=== PATIENT | male | born 1965 | race Two or more races ===

== ENCOUNTER 2020-03-31 13:58 | Outpatient (REF) | payer MEDICARE, MEDICAID, SELFPAY ==
[2020-03-31 14:50] LABS: Influenza A PCR NEGATIVE (Negative); Influenza B PCR NEGATIVE (Negative); Resp Syncy Virus RNA Qual PCR NEGATIVE (Negative); SARS COV2 PCR INHOUSE NEGATIVE (Negative)
== END 2020-03-31 13:59 | disposition home or self-care (01) ==
LOC: HO.LNP 13:58
PROVIDERS: Visit Provider Internal Medicine
DX: R51.9 Headache, unspecified (principal); R52 Pain, unspecified; R53.83 Other fatigue
CPT/HCPCS: 0241U

== ENCOUNTER 2020-04-15 14:02 | Outpatient (REF) | payer MEDICARE, MEDICAID, SELFPAY ==
--- NOTE | 2020-04-15 14:10 | XR_ITS ---
EXAMINATION: XR CHEST CLINICAL INFORMATION: Chest wall pain. History of tobacco use. COMPARISON: None TECHNIQUE: 2 views of the chest were obtained. FINDINGS: The cardiac and mediastinal contours are normal. The lungs are clear. There is no pleural effusion or pneumothorax. There is an old right lateral seventh rib fracture. There are mild degenerative changes of the thoracic spine. XR/XR chest 2V IMPRESSION: No evidence for acute disease in the chest.
[2020-04-15 15:00] LABS: MANUAL DIFF FLAG NO
[2020-04-15 15:01] LABS: Basophils Percent Auto 0.4 % (0-2); Eosinophils Percent Auto 0.3 % (0-4); Hematocrit 46.9 % (42-52); Hemoglobin 15.2 g/dl (14.0-18.0); Imm Gran Abs Auto 0.01 X10*3/uL (0.00-0.03); Imm Gran Pct Auto 0.1 % (0.0-0.4); Lymphocytes Absolute Auto 1.1 X10*3/uL (1.2-4.9); Lymphocytes Percent Auto 16.4 % (20-40); Mean Corpuscular HGB Conc 32.4 g/dl (31.0-36.0); Mean Corpuscular Hemoglobin 31.5 pg (27.0-33.0); Mean Corpuscular Volume 97.3 fL (80-98); Mean Platelet Volume 10.1 fL (9.4-12.4); Monocytes Absolute Auto 0.5 X10*3/uL (0.1-1.2); Monocytes Percent Auto 6.9 % (2-11); Neutrophils Absolute Auto 5.3 X10*3/uL (2.0-8.3); Neutrophils Percent Auto 75.9 % (45-73); Platelet Count 191 X10*3/uL (160-400); Red Blood Count 4.82 X10*6/uL (4.60-5.80); Red Cell Distribution Width 12.3 % (11.0-16.0); White Blood Count 6.9 X10*3/uL (4.8-10.8)
[2020-04-15 15:30] LABS: Alanine Aminotransferase 20 U/L (0-40); Albumin Level 4.5 g/dL (3.5-5.0); Alkaline Phosphatase 97 U/L (39-117); Anion Gap 15 (12-20); Aspartate Amino Transferase 22 U/L (5-37); Bilirubin Total 1.2 mg/dL (0.0-1.0); Blood Urea Nitrogen 15 mg/dL (9-16); C Reactive Protein 0.41 mg/dL (< or = 0.50); Calcium 9.7 mg/dL (8.4-10.2); Carbon Dioxide 29 mmol/L (22-29); Chloride 102 mmol/L (96-108); Estimated Glomerular Filt Rate > 60; Glucose Random 98 mg/dL (60-115); Potassium 4.7 mmol/L (3.3-5.1); Sodium 141 mmol/L (135-145); Total Protein 7.2 g/dL (6.5-8.0)
== END 2020-04-15 14:03 | disposition home or self-care (01) ==
LOC: HO.LAB 14:02
PROVIDERS: PCP Internal Medicine; Visit Provider Internal Medicine
DX: R07.89 Other chest pain (principal); F17.210 Nicotine dependence, cigarettes, uncomplicated
CPT/HCPCS: 36415; 71046; 80053; 85025; 86140

== ENCOUNTER 2021-02-18 11:33 | Outpatient (REF) | payer MEDICARE, MEDICAID, SELFPAY ==
[2021-02-18 13:47] LABS: MANUAL DIFF FLAG NO
[2021-02-18 13:50] LABS: Appearance Urine CLEAR; Color Urine YELLOW; Glucose Urine UA NEG (NEG); Leukocyte Esterase Urine NEG (NEG); Nitrite Urine NEG (NEG); Urine Blood NEG (NEG); Urine Ketones NEG (NEG); Urine Protein NEG (NEG-TRACE)
[2021-02-18 13:54] LABS: Basophils Percent Auto 0.4 % (0-2); Eosinophils Percent Auto 0.6 % (0-4); Hematocrit 44.7 % (42.0-52.0); Hemoglobin 14.3 g/dl (14.0-18.0); Imm Gran Abs Auto 0.01 X10*3/uL (0.00-0.03); Imm Gran Pct Auto 0.2 % (0.0-0.4); Lymphocytes Absolute Auto 1.2 X10*3/uL (1.2-4.9); Lymphocytes Percent Auto 21.7 % (20-40); Mean Corpuscular Hemoglobin 30.8 pg (27.0-33.0); Mean Corpuscular Volume 96.1 fL (80.0-98.0); Mean Platelet Volume 10.9 fL (9.4-12.4); Monocytes Absolute Auto 0.4 X10*3/uL (0.1-1.2); Monocytes Percent Auto 6.6 % (2-11); Neutrophils Absolute Auto 3.8 x10*3/uL (2.0-8.3); Neutrophils Percent Auto 70.5 % (45-73); Platelet Count 198 X10*3/uL (160-400); Red Blood Count 4.65 X10*6/uL (4.60-5.80); Red Cell Distribution Width 12.1 % (11.0-16.0); White Blood Count 5.3 X10*3/uL (4.8-10.8)
[2021-02-18 14:38] LABS: Anion Gap 12 (12-20); Blood Urea Nitrogen 11 mg/dL (9-16); Calcium 9.6 mg/dL (8.4-10.2); Carbon Dioxide 25 mmol/L (22-29); Chloride 107 mmol/L (96-108); Estimated Glomerular Filt Rate > 60; Glucose Random 104 mg/dL (60-115); Potassium 4.3 mmol/L (3.3-5.1); Sodium 140 mmol/L (135-145)
[2021-02-18 14:49] LABS: Prostate Specific Antigen Scr 0.94 ng/mL (<0.05-4.0)
[2021-02-18 17:14] LABS: CT PCR NOT DETECTED (Not Detect.); NG PCR NOT DETECTED (Not Detect.)
== END 2021-02-18 11:34 | disposition home or self-care (01) ==
LOC: HO.10HDL 11:33
PROVIDERS: Visit Provider Internal Medicine
DX: Z12.5 Encounter for screening for malignant neoplasm of prostate (principal); Z11.3 Encounter for screening for infections with a predominantly sexual mode of transmission; R30.0 Dysuria; Z72.0 Tobacco use
CPT/HCPCS: 80048; 81003; 84153; 85025; 87086; 87491; 87591

== ENCOUNTER 2021-12-10 17:41 | Emergency (ER) | payer MEDICARE, MEDICAID, SELFPAY ==
[2021-12-10 17:57] VITALS: BP 177/68; PULSE 76; RESP 16; TEMP 36.7; O2SAT 99; BMI 26.6
--- NOTE | 2021-12-10 17:59 | ECG_ITS ---
Test Reason : OVERDOSED Blood Pressure : / mmHG Vent. Rate : 071 BPM Atrial Rate : 071 BPM P-R Int : 154 ms QRS Dur : 084 ms QT Int : 422 ms P-R-T Axes : 026 006 086 degrees QTc Int : 458 ms Normal sinus rhythm Nonspecific T wave abnormality Abnormal ECG No previous ECGs available Referred By: Beckie Kwon Electronically Signed By:AMANDA SANCHEZ
--- NOTE | 2021-12-10 18:07 | ED_ITS ---
HPI - Overdose General Chief Complaint: Overdose Stated Complaint: AMS Time Seen by Provider: 12/10/21 17:55 Source: patient and EMS Mode of arrival: EMS Limitations: no limitations History of Present Illness HPI Narrative: patient came to the emergency room after a heroin overdose. Patient reports that he usually takes 3 bags of heroin. However, 1 hour prior to arrival patient used at different heroin that he usually uses [place] [facility] . Patient states that he immediately starting feeling very flushed, feeling weird. Patient gave himself intranasal Narcan. patient called 911. EMS reports that the patient was drowsy but arousable, oxygen saturation 100% on room air. Here in the emergency room, patient is somnolent but easily arousable, was able to give us a history. Patient states that this time he feels nauseous. Denies chest pain or shortness of breath, no vomiting or diarrhea. Patient states this Overdose was incidental, denies suicidal or homicidal ideation. Related Data Allergies Allergy/AdvReac Type Severity Reaction Status Date / Time No Known Allergies Allergy Unverified 11/28/19 16:33 Review of Systems Review of Systems: Constitutional : No Weight loss, No Fever, No Chills, No Night Sweats, No Fatigue, No Malaise ENT/Mouth : No Hearing loss, No Ear Pain, No Nasal Congestion, No Sinus Pain, No Hoarseness, No sore throat, No Rhinorrhea, No Swallowing Difficulty Eyes: No Eye Pain, No Swelling, No Redness, No Foreign Body, No Discharge, No Vision Changes Cardiovascular : No Chest Pain, No SOB, No Dyspnea on Exertion, No Orthopnea, No Edema, No Palpitations Respiratory : No Cough, No Sputum, No Wheezing, No Smoke Exposure, No Dyspnea Gastrointestinal : complaining of Nausea, No Vomiting, No Diarrhea, No Constipa tion, No abdominal Pain, No Hematochezia, No Melena Genitourinary : no irregular bleeding, No Dysuria, No Urinary Frequency, No Hematuria, No Urinary Incontinence, No Urgency, No Flank Pain, No Urinary Flow Changes, No Hesitancy Musculoskeletal : No joint pain, No Myalgias, No Joint Swelling Skin : No Skin Lesions, No rash Neuro : No Weakness, No Numbness, No Paresthesias, No Loss of Consciousness, No Dizziness, No Headache Psych : No Anxiety/Panic, No Depression, No SI/HI/AH/VH, admits to using heroin Heme/Lymph: No Bruising, No Bleeding,No Lymphadenopathy Endocrine : No Polyuria, No Polydipsia, No Temperature Intolerance [facility] Past Medical History Medical History (Updated 12/10/21 @ 18:18 by Beckie Kwon MD) Substance abuse Social History Social History Use of substances other than those prescribed or required for medical reasons: Yes Substance Use Type: Heroin Substance Use Frequency: Daily Last Used Substance: Just Prior to Admission Any prior treatment program specific to substance use: No Advance Directives: No Advance Directives Information Provided: No Physical Exam Vital Signs: Vital Signs: Last Vital Signs Temp 97.8 F 12/10/21 21:54 Pulse 77 12/10/21 21:54 Resp 18 12/10/21 21:54 BP 142/80 H 12/10/21 21:54 Pulse Ox 96 12/10/21 21:54 O2 Del Method 12/10/21 21:54 BMI result Body Mass Index 26.6 Const: Other: Appearance: Alert. Oriented X3. No acute distress. somnolent but easily arousable Eyes: Pupils equal, round and reactive to light. ENT: Pharynx normal. Neck: Normal inspection. Neck supple. No lymph nodes noted. No crepitus CVS: Normal heart rate and rhythm. Pulses normal. Normal S1 and S2 Respiratory: No respiratory distress. Breath sounds normal. No Wheezing. No rales Abdomen: Soft and nontender. No rigidity. No distention. Skin: Skin warm and dry. Normal skin color. Normal skin turgor. Extremities: No lower extremity edema. No Lacerations. No Rash Neuro: Oriented X 3. No motor deficit. No sensory deficit. Moving all extremities. No slurred speech. CN 2 through 12 grossly intact Psych: calm, cooperative, normal affect, coherent Course Course Course Narrative: EKG labs pending. Care consult for a SUDe eval is pending patient provided with home Narcan the organ recovery coordinator spoke with the patient. Patient is not interested in detox. Patient states that he has several pets at home and cannot go to detox. Patient was given resources which he will look into it for outpatient services. Patient remains stable, awake and alert and oriented x3, calm, cooperative, oxygen saturation to high 90s. Ambulating without any assistance. Patient ready for discharge MDM - Overdose Lab Data Result diagrams: 12/10/21 18:44 12/10/21 18:44 Labs: Lab Results 12/10/21 12/10/21 12/10/21 Range/Units 18:44 18:44 18:44 WBC 12.6 H (4.8-10.8) X10*3/uL RBC 4.76 (4.60-5.80) X10*6/uL Hgb 14.9 (14.0-18.0) g/dl Hct 45.1 (42.0-52.0) % MCV 94.7 (80.0-98.0) fL MCH 31.3 (27.0-33.0) pg MCHC 33.0 (31.0-36.0) g/dl RDW 12.5 (11.0-16.0) % Plt Count 171 (160-400) X10*3/uL MPV 9.8 (9.4-12.4) fL Immature Gran % (Auto) 0.2 (0.0-0.4) % Neut % (Auto) 88.5 H (45-73) % Lymph % (Auto) 6.1 L (20-40) % Clinch % (Auto) 4.9 (2-11) % Eos % (Auto) 0.0 (0-4) % Baso % (Auto) 0.3 (0-2) % Lymph # (Auto) 0.8 L (1.2-4.9) X10*3/uL Clinch # (Auto) 0.6 (0.1-1.2) X10*3/uL Eos # (Auto) 0.0 (0.0-0.4) X10*3/uL Baso # (Auto) 0.0 (0.0-0.2) X10*3/uL Abs Immat Gran (auto) 0.03 (0.00-0.03) X10*3/uL Absolute Neuts (auto) 11.1 H (2.0-8.3) x10*3/uL Absolute Nucleated RBC 0.000 (0.0-0.012) X10*3/uL Nucleated RBC % (auto) 0.0 (0.0-0.2) /100WBC Sodium 137 (135-145) mmol/L Potassium 3.7 (3.3-5.1) mmol/L Chloride 101 (96-108) mmol/L Carbon Dioxide 20 L (22-29) mmol/L Anion Gap 20 (12-20) BUN 12 (9-16) mg/dL Creatinine 0.79 (0.5-1.4) mg/dL Estim Creat Clear Calc 91.9 Estimated GFR > 60 Random Glucose 99 (60-115) mg/dL Calcium 9.5 (8.4-10.2) mg/dL Total Bilirubin 0.5 (0.0-1.0) mg/dL Direct Bilirubin 0.3 (0.0-0.5) mg/dL AST 21 (5-37) U/L ALT 17 (0-40) U/L Alkaline Phosphatase 89 (39-117) U/L Troponin I High Sens 4.6 (<3.5-35.0) ng/L Total Protein 7.0 (6.5-8.0) g/dL Albumin 4.4 (3.5-5.0) g/dL Urine Opiates Screen (Not Detect) Urine Fentanyl Screen (Not Detect) Ur Barbiturates Screen (Not Detect) Ur Phencyclidine Scrn (Not Detect) Ur Amphetamines Screen (Not Detect) U Benzodiazepines Scrn (Not Detect) Urine Cocaine Screen (Not Detect) U Marijuana (THC) Screen (Not Detect) 12/10/21 Range/Units 20:47 WBC (4.8-10.8) X10*3/uL RBC (4.60-5.80) X10*6/uL Hgb (14.0-18.0) g/dl Hct (42.0-52.0) % MCV (80.0-98.0) fL MCH (27.0-33.0) pg MCHC (31.0-36.0) g/dl RDW (11.0-16.0) % Plt Count (160-400) X10*3/uL MPV (9.4-12.4) fL Immature Gran % (Auto) (0.0-0.4) % Neut % (Auto) (45-73) % Lymph % (Auto) (20-40) % Clinch % (Auto) (2-11) % Eos % (Auto) (0-4) % Baso % (Auto) (0-2) % Lymph # (Auto) (1.2-4.9) X10*3/uL Clinch # (Auto) (0.1-1.2) X10*3/uL Eos # (Auto) (0.0-0.4) X10*3/uL Baso # (Auto) (0.0-0.2) X10*3/uL Abs Immat Gran (auto) (0.00-0.03) X10*3/uL Absolute Neuts (auto) (2.0-8.3) x10*3/uL Absolute Nucleated RBC (0.0-0.012) X10*3/uL Nucleated RBC % (auto) (0.0-0.2) /100WBC Sodium (135-145) mmol/L Potassium (3.3-5.1) mmol/L Chloride (96-108) mmol/L Carbon Dioxide (22-29) mmol/L Anion Gap (12-20) BUN (9-16) mg/dL Creatinine (0.5-1.4) mg/dL Estim Creat Clear Calc Estimated GFR Random Glucose (60-115) mg/dL Calcium (8.4-10.2) mg/dL Total Bilirubin (0.0-1.0) mg/dL Direct Bilirubin (0.0-0.5) mg/dL AST (5-37) U/L ALT (0-40) U/L Alkaline Phosphatase (39-117) U/L Troponin I High Sens (<3.5-35.0) ng/L Total Protein (6.5-8.0) g/dL Albumin (3.5-5.0) g/dL Urine Opiates Screen POSITIVE H (Not Detect) Urine Fentanyl Screen POSITIVE H (Not Detect) Ur Barbiturates Screen Not Detected (Not Detect) Ur Phencyclidine Scrn Not Detected (Not Detect) Ur Amphetamines Screen Not Detected (Not Detect) U Benzodiazepines Scrn Not Detected (Not Detect) Urine Cocaine Screen Not Detected (Not Detect) U Marijuana (THC) Screen POSITIVE H (Not Detect) Discharge Plan Discharge Clinical Impression: Drug overdose Patient Disposition: Home, Self-Care Instructions: Adult Overdose (ED) Additional Instructions: Please follow-up with your primary care physician tomorrow. If you have any worsening or new symptoms, please return to the emergency room or call [phone]
[2021-12-10] MEDS: Ondansetron ODT 4 MG TAB.RAPDIS TRANSLINGU (18:20)
[2021-12-10] MEDS: Naloxone HCl Nasal TAKE HOME 4 MG SPRAY NOSTRILALT (18:22)
--- NOTE | 2021-12-10 18:37 | MHC.RECOVSUP ---
? Reason for consult Recovery Support o Current location: ED16 o Identified substance use concern: Heroin - Overdose - Support ? Intervention: o Community resources provided o Harm reduction discussion ? Plan: o Patient to follow up with [facility] after discharge ? Additional information: Patient dose not want to go to any detox.. stated that he lives alone and that there no one to take care of his pet..Resources was given to patient just in case he has a change his mind..
[2021-12-10 18:49] LABS: MANUAL DIFF FLAG NO
[2021-12-10 18:50] VITALS: BP 142/84; PULSE 78; RESP 16; TEMP 36.7; O2SAT 95
[2021-12-10 18:52] LABS: Basophils Percent Auto 0.3 % (0-2); Hematocrit 45.1 % (42.0-52.0); Hemoglobin 14.9 g/dl (14.0-18.0); Imm Gran Abs Auto 0.03 X10*3/uL (0.00-0.03); Imm Gran Pct Auto 0.2 % (0.0-0.4); Lymphocytes Absolute Auto 0.8 X10*3/uL (1.2-4.9); Lymphocytes Percent Auto 6.1 % (20-40); Mean Corpuscular Hemoglobin 31.3 pg (27.0-33.0); Mean Corpuscular Volume 94.7 fL (80.0-98.0); Mean Platelet Volume 9.8 fL (9.4-12.4); Monocytes Absolute Auto 0.6 X10*3/uL (0.1-1.2); Monocytes Percent Auto 4.9 % (2-11); Neutrophils Absolute Auto 11.1 x10*3/uL (2.0-8.3); Neutrophils Percent Auto 88.5 % (45-73); Platelet Count 171 X10*3/uL (160-400); Red Blood Count 4.76 X10*6/uL (4.60-5.80); Red Cell Distribution Width 12.5 % (11.0-16.0); White Blood Count 12.6 X10*3/uL (4.8-10.8)
[2021-12-10 19:18] LABS: Alanine Aminotransferase 17 U/L (0-40); Albumin Level 4.4 g/dL (3.5-5.0); Alkaline Phosphatase 89 U/L (39-117); Anion Gap 20 (12-20); Aspartate Amino Transferase 21 U/L (5-37); Bilirubin Direct 0.3 mg/dL (0.0-0.5); Bilirubin Total 0.5 mg/dL (0.0-1.0); Blood Urea Nitrogen 12 mg/dL (9-16); Calcium 9.5 mg/dL (8.4-10.2); Carbon Dioxide 20 mmol/L (22-29); Chloride 101 mmol/L (96-108); Creatinine Clr Calc Pharmacy 91.9; Estimated Glomerular Filt Rate > 60; Glucose Random 99 mg/dL (60-115); Potassium 3.7 mmol/L (3.3-5.1); Sodium 137 mmol/L (135-145); Troponin-I High Sensitivity 4.6 ng/L (<3.5-35.0)
[2021-12-10 20:17] VITALS: BP 162/97; PULSE 76; RESP 18; TEMP 36.8; O2SAT 96
--- NOTE | 2021-12-10 20:32 | PC.NURSE ---
pt resting comfortably on stretcher. no apparent distress. respirations even and unlabored. no current complaints. given jello and applesauce per pt request.
[2021-12-10 21:17] LABS: Amphetamine Screen Urine Not Detected (Not Detect); Barbiturates, Urine Not Detected (Not Detect); Benzodiazepines Screen Urine Not Detected (Not Detect); Cannabinoid Screen Urine POSITIVE (Not Detect); Cocaine Screen Urine Not Detected (Not Detect); Fentanyl, urine POSITIVE (Not Detect); Opiate Screen Urine POSITIVE (Not Detect); Phencyclidine Screen Urine Not Detected (Not Detect)
[2021-12-10 21:54] VITALS: BP 142/80; PULSE 77; RESP 18; TEMP 36.6; O2SAT 96
== END 2021-12-10 22:25 | disposition home or self-care (01) ==
PROVIDERS: Emergency Provider Emergency Medicine
DX: T40.1X1A Poisoning by heroin, accidental (unintentional), initial encounter (principal); F11.10 Opioid abuse, uncomplicated; Y92.9 Unspecified place or not applicable; Z79.899 Other long term (current) drug therapy
CPT/HCPCS: 36415; 80048; 80076; 80307; 84484; 85025; 93005; 99284

== ENCOUNTER 2022-08-26 14:54 | Outpatient (REF) | payer MEDICARE, SELFPAY ==
[2022-08-26 15:14] LABS: MANUAL DIFF FLAG NO
[2022-08-26 17:19] LABS: Basophils Percent Auto 0.5 % (0-2); Eosinophils Absolute Auto 0.1 X10*3/uL (0.0-0.4); Hematocrit 41.1 % (42.0-52.0); Hemoglobin 13.4 g/dl (14.0-18.0); Imm Gran Abs Auto 0.01 X10*3/uL (0.00-0.03); Imm Gran Pct Auto 0.2 % (0.0-0.4); Lymphocytes Absolute Auto 1.8 X10*3/uL (1.2-4.9); Lymphocytes Percent Auto 29.1 % (20-40); Mean Corpuscular HGB Conc 32.6 g/dl (31.0-36.0); Mean Corpuscular Hemoglobin 31.9 pg (27.0-33.0); Mean Corpuscular Volume 97.9 fL (80.0-98.0); Mean Platelet Volume 11.1 fL (9.4-12.4); Monocytes Absolute Auto 0.5 X10*3/uL (0.1-1.2); Monocytes Percent Auto 7.7 % (2-11); Neutrophils Absolute Auto 3.9 x10*3/uL (2.0-8.3); Neutrophils Percent Auto 61.5 % (45-73); Platelet Count 185 X10*3/uL (160-400); Red Cell Distribution Width 12.3 % (11.0-16.0); White Blood Count 6.3 X10*3/uL (4.8-10.8)
[2022-08-26 17:29] LABS: Estimated Average Glucose 91 mg/dL; Hemoglobin A1c % 4.8 %
[2022-08-26 17:57] LABS: Alanine Aminotransferase 16 U/L (0-40); Alkaline Phosphatase 81 U/L (39-117); Anion Gap 12 (12-20); Aspartate Amino Transferase 16 U/L (5-37); Bilirubin Total 0.5 mg/dL (0.0-1.0); Blood Urea Nitrogen 11 mg/dL (9-16); Calcium 9.8 mg/dL (8.4-10.2); Carbon Dioxide 28 mmol/L (22-29); Chloride 104 mmol/L (96-108); Cholesterol 201 mg/dL; Estimated Glomerular Filt Rate > 60; Glucose Random 73 mg/dL (60-115); Potassium 4.3 mmol/L (3.3-5.1); Sodium 140 mmol/L (135-145); Total Protein 6.6 g/dL (6.5-8.0)
[2022-08-26 18:17] LABS: Prostate Specific Antigen 0.72 ng/mL (<0.05-4.0)
== END 2022-08-26 14:55 | disposition home or self-care (01) ==
LOC: HO.LAB 14:54
PROVIDERS: Visit Provider Internal Medicine
DX: E55.9 Vitamin D deficiency, unspecified (principal); Z12.5 Encounter for screening for malignant neoplasm of prostate; Z72.0 Tobacco use; Z83.3 Family history of diabetes mellitus
CPT/HCPCS: 36415; 80053; 82306; 82465; 83036; 84153; 85025

== ENCOUNTER 2022-08-27 09:44 | Outpatient (REF) | payer MEDICARE, SELFPAY ==
[2022-08-27 10:32] LABS: Appearance Urine Clear; Color Urine Yellow; Glucose Urine UA Negative (Negative); Leukocyte Esterase Urine Negative (Negative); Nitrite Urine Negative (Negative); Urine Blood Negative (Negative); Urine Ketones Negative (Negative); Urine Protein Negative (Neg-Trace)
[2022-08-27 12:15] LABS: CT PCR NOT DETECTED (Not Detect.); NG PCR NOT DETECTED (Not Detect.)
== END 2022-08-27 09:45 | disposition home or self-care (01) ==
LOC: HO.LNP 09:44
PROVIDERS: Visit Provider Internal Medicine
DX: Z13.89 Encounter for screening for other disorder (principal)
CPT/HCPCS: 0353U; 81003; 87086

== ENCOUNTER 2024-11-27 11:07 | Outpatient (REF) | payer MEDICARE, MEDICAID, SELFPAY ==
[2024-11-27 12:35] LABS: MANUAL DIFF FLAG NO
[2024-11-27 13:03] LABS: Hematocrit 44.9 % (42.0-52.0); Hemoglobin 14.7 g/dl (14.0-18.0); Imm Gran Abs Auto 0.02 X10*3/uL (0.00-0.03); Imm Gran Pct Auto 0.3 % (0.0-0.4); Lymphocytes Absolute Auto 1.2 X10*3/uL (1.2-4.9); Mean Corpuscular HGB Conc 32.7 g/dl (31.0-36.0); Mean Corpuscular Hemoglobin 32.5 pg (27.0-33.0); Mean Corpuscular Volume 99.1 fL (80.0-98.0); NRBC Abs Auto 0.000 X10*3/uL (0.0-0.012); NRBC Pct Auto 0.0 /100WBC (0.0-0.2); Platelet Count 187 X10*3/uL (160-400); Red Blood Count 4.53 X10*6/uL (4.60-5.80); White Blood Count 5.8 X10*3/uL (4.8-10.8)
[2024-11-27 13:23] LABS: Total Hemoglobin (HGBA1C) 3806.0510 umol/L
[2024-11-27 13:43] LABS: Alanine Aminotransferase 33 U/L (0-40); Albumin Level 4.5 g/dL (3.5-5.0); Alkaline Phosphatase 94 U/L (39-117); Anion Gap 13 (12-20); Aspartate Amino Transferase 30 U/L (5-37); Blood Urea Nitrogen 9 mg/dL (9-16); Calcium 9.8 mg/dL (8.4-10.2); Carbon Dioxide 31 mmol/L (22-29); Chloride 105 mmol/L (96-108); Cholesterol 220 mg/dL (<200); Estimated Glomerular Filt Rate > 60; HDL Cholesterol 107 mg/dL (>40); Potassium 5.0 mmol/L (3.3-5.1); Sodium 144 mmol/L (135-145); Total Protein 7.1 g/dL (6.5-8.0); Triglycerides 88 mg/dL (<150)
[2024-11-27 13:49] LABS: Prostate Specific Antigen 1.15 ng/mL (<0.05-4.0)
== END 2024-11-27 11:08 | disposition home or self-care (01) ==
LOC: HO.LAB 11:07
PROVIDERS: PCP Physician Assistant; Visit Provider Physician Assistant
DX: Z12.5 Encounter for screening for malignant neoplasm of prostate (principal); Z00.00 Encounter for general adult medical examination without abnormal findings; E55.9 Vitamin D deficiency, unspecified; R63.0 Anorexia; F10.90 Alcohol use, unspecified, uncomplicated; G47.00 Insomnia, unspecified; F17.210 Nicotine dependence, cigarettes, uncomplicated; F11.91 Opioid use, unspecified, in remission; Z79.899 Other long term (current) drug therapy
CPT/HCPCS: 36415; 80048; 80061; 80076; 82306; 83036; 84153; 84443; 85025; 99386

== ENCOUNTER 2024-11-27 11:07 | Outpatient (AMB) | payer MEDICARE, MEDICAID, SELFPAY ==
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
[2024-11-27 11:34] VITALS: BP 132/100; PULSE 90; TEMP 36.6; O2SAT 98; BMI 22.6
[2024-11-27 12:02] VITALS: BP 130/86
--- OUTSIDE RECORDS SUMMARY | 2024-11-27 14:22 | XMS_ITS | Encounter Summary ---
Author Organization [employer] Address [address] [place] [address] Care Team Providers Care Weatherization Coordinator Name Role Phone Renay Lucas MD Primary Care Provider Unavailab le Reason for Visit * Reason Comments Med Refill Encounter Details Date Type Department Care Team (Late st Contact Info) Description 05/23/2022 Refill [facility] [address] [place] [address] Eladio Zamarripa DMD [address] [place] [address] Dental abscess Social History Tobacco Use Types Packs/Day Years Used Date Smoking Tobacco: Every Day Cigarettes 0.3 20 Sex and Gender Information Value Date Recorded Sex Assigned at Male 01/10/2022 10:16 AM EDT Legal Sex Male 10:16 AM EDT Gender Identity Male 03/22/2023 2:24 PM EST Sexual Orientation Choose not to disclose 2021 10:16 AM EDT COVID-19 Exposure Response Date Recorded In the last 10 days, have yo u been in contact with someone who was confirmed or suspected to have Coronavirus/COVID-19? No / Unsure 05/06/2022 2:23 PM EST documented as of this encounter Miscellaneous Notes * Telephone Encounter - Eladio Zamarripa DMD - 05/25/2022 12:57 PM EDT Approving, but needs appt for additional refills. documented in this encounter Plan of Treatment Not on file documented as of this encounter Visit Diagnoses Diagnosis Dental abscess Periapical abscess without sinus documented in this encounter Care Teams Weatherization Coordinator Relationship Specialty Start Date End Date Renay Lucas MD PCP - General Family Medicine 06/15/16 documented as of this encounter
--- OUTSIDE RECORDS SUMMARY | 2024-11-27 14:22 | XMS_ITS | Clinical Summary ---
Author Organization [employer] Address [address] [facility] [address] [place] [address] Care Team Providers Care Optical Fabricator Name Role Phone Renay Lucas MD Primary Care Provider Unavailab le Allergies No known active allergies Medications FLUoxetine (PROzac) 40 MG capsule Take 40 mg by mouth in the morning. 2 Active ibuprofen 600 MG tablet Take 1 tablet by mouth in the morning, at noon, and at bedtime. 2 Active zolpidem (Ambien) 10 MG tablet 2 Active acetaminophen (Tylenol) 500 MG tabletIndication s:Dental abscess 1 TABLET ORALLY EVERY 6 HOURS NEEDED FOR MILD PAIN 30 tablet 3 Active Additional Information Patient not taking.Reported on 03/22/2023 acetaminophen-co deine (TYLENOL/CODEINE #3) 300-30 MG tabletIndication s:History of tooth extraction, unspecified edentulism class Take 1 tablet by mouth every 6 (six) hours if needed for severe pain for up to 5 doses. 5 tablet 3 Active Additional Information Patient not taking.Reported on 03/22/2023 acetaminophen (Tylenol) 500 MG tabletIndication s:History of tooth extraction, unspecified edentulism class Take 1 tablet (500 mg) by mouth every 6 (six) hours if needed for mild pain for up to 20 doses. 20 tablet 3 Active Additional Information Patient not taking.Reported on 03/22/2023 methadone (Dolophine) 10 MG/5ML solution Take by mouth. Active Immunizations Immunization Administration Dates Next Due Influenza injectable quadrivalent preservative f ree 11/09/2018 Moderna Covid-19 Vaccine 6+ Bivalent 11/15/2022 Td (adult), 5 Lf tetanus tox oid, preservative free, adsorbed 12/12/2013 Social History Tobacco Use Types Packs/Day Years Used Date Smoking Tobacco: Every Day Cigarettes 0.3 20 Smokeless Tobacco: Never Tobacco Cessation:Ready to Q uit: Not Asked; Counseling Given: Not Answered Alcohol Use Standard Drinks/Week Comments Yes 0 (1 standard drink = 0.6 oz pur e alcohol) Sex and Gender Information Value Date Recorded Sex Assigned at Male 01/10/2022 10:16 AM EDT Legal Sex Male 10:16 AM EDT Gender Identity Male 03/22/2023 2:24 PM EST Sexual Orientation Choose not to disclose 2021 10:16 AM EDT Last Filed Vital Signs Vital Sign Reading Time Taken Comments Blood Pressure 120/68 02/22/2023 2:58 PM EST Pulse - - Temperature - - Respiratory Rate - - Oxygen Saturation - - Inhaled Oxygen Concentration - - Weight - - Height - - Body Mass Index - - Plan of Treatment Health Maintenance Due Date Last Done Comments CT Colonography 1966 Colonoscopy 1966 Colorectal Cancer Screening 1966 Dental Prophylaxis 1966 Dental X-Ray: Bitewings 1966 Depression Screening 1966 FIT DNA/Cologuard 1966 FIT 1966 FOBT 1966 HIV Screening 1966 Lipid Panel 1966 SDOH Screening 1966 Sigmoidoscopy 1966 Disability Screening 1966 Alcohol/Substance Use Screening 1978 Hepatitis C Screening 1984 Pneumococcal Vaccine: 50+ Years (1 of 2 - PCV) 1985 DTaP/Tdap/Td Vaccines (1 - Tdap) 12/13/2013 12/12/2013, 05/31/2013 Hepatitis B Vaccines (3 of 3 - 19+ 3-dose series) 10/08/2015 05/18/2015, 04/09/2015 Zoster Vaccines (1 of 2) 2016 Dental Oral Exam 11/04/2022 05/06/2022 Tobacco Screening 10/19/2024 10/20/2023 COVID-19 Vaccine (4 - 2024-2 6 season) 2024 11/15/2022, 03/08/2021, 07/01/2020 Influenza Vaccine (#1) 2024 , 04/09/2015 Dental X-Ray: Full Mouth 05/07/2025 05/06/2022 RSV Patients and Patients Aged 60 years or older (1 - 1-dose 75+ series) 2041 HIB Vaccines Aged Out No longer eligi ble based on patient's age to complete this topic HPV Vaccines Aged Out No longer eligi ble based on patient's age to complete this topic Hepatitis A Vaccines Aged Out No long er eligible based on patient's age to complete this topic IPV Vaccines Aged Out No longer eligi ble based on patient's age to complete this topic Meningococcal B Vaccine Aged Out No l onger eligible based on patient's age to complete this topic Meningococcal Vaccine Aged Out No vik pasha eligible based on patient's age to complete this topic RSV under 20 months Aged Out No longe r eligible based on patient's age to complete this topic Rotavirus Vaccines Aged Out No longer eligible based on patient's age to complete this topic Procedures Procedure Name Priority Date/Time Associated Diagnosis Comments PANORAMIC RADIOGRAPHIC IMAGE Routine 05/06/2022 2:30 PM EST Dental abscess Periodontal disease COMPREHENSIVE ORAL EVALUATION - NEW OR ESTABLISHED PATIENT Routine 05/06/2022 2:30 PM EST Dental abscess Periodontal disease from Last 3 Months or Most Recently Relevant to Health Maintenance Insurance [facility] STANDARD MEDICARE Care Teams Optical Fabricator Relationship Specialty Start Date End Date Renay Lucas MD PCP - General Family Medicine 06/15/16
--- OUTSIDE RECORDS SUMMARY | 2024-11-27 14:22 | XMS_ITS | Encounter Summary ---
Author Organization [employer] Address [address] [place] [address] Care Team Providers Care Sales Department Supervisor Name Role Phone Renay Lucas MD Primary Care Provider Unavailab le Reason for Visit * Reason Onset Date Comments tooth piece still in gum 12/09/2022 Encounter Details Date Type Department Care Team (Late st Contact Info) Description 12/09/2022 Telephone [facility] ADULT DENTAL [address] [place] [address] Eladio Zamarripa, DMD [address] [place] [address] tooth piece still in gum Social History Tobacco Use Types Packs/Day Years Used Date Smoking Tobacco: Every Day Cigarettes 0.3 20 Smokeless Tobacco: Never Alcohol Use Standard Drinks/Week Comments Yes 0 (1 standard drink = 0.6 oz pur e alcohol) Sex and Gender Information Value Date Recorded Sex Assigned at Male 01/10/2022 10:16 AM EDT Legal Sex Male 10:16 AM EDT Gender Identity Male 03/22/2023 2:24 PM EST Sexual Orientation Choose not to disclose 2021 10:16 AM EDT documented as of this encounter Miscellaneous Notes * Telephone Encounter - Licha Roche - 12/09/2022 2:16 PM EDT Patient informed that situation is typical but that if he wants to evaluated he can come in today before 3 or on Monday walk in to be re evaluated. He stated that if that is the case, he will wait itout the weekend. If it comes out on its own he will call to let us know, otherwise he will just show up DR * Telephone Encounter - Licha Roche - 12/09/2022 11:59 AM EDT Patient called in stating that he had extraction appt today at 9am and that he feels a piece of tooth that is still in gum. Called front attendant. Given ext [phone] to reach you. Voicemail came on. What should patient do? DR documented in this encounter Plan of Treatment Not on file documented as of this encounter Visit Diagnoses Not on filedocumented in this encounter Care Teams Sales Department Supervisor Relationship Specialty Start Date End Date Renay Lucas MD PCP - General Family Medicine 06/15/16 documented as of this encounter
--- OUTSIDE RECORDS SUMMARY | 2024-11-27 14:22 | XMS_ITS | Encounter Summary ---
Author Organization [employer] Address [address] [facility] [address] [place] [address] Care Team Providers Care Hydroelectric Station Operator Chief Name Role Phone Renay Lucas MD Primary Care Provider Unavailab le Encounter Details Date Type Department Care Team (Late st Contact Info) Description 06/28/2022 Abstract [facility] ADULT DENTAL [address] [place] [address] Ruth Capo, DMD [address] [place] [address] Social History Tobacco Use Types Packs/Day Years [...] suspected to have Coronavirus/COVID-19? No / Unsure 05/30/2022 1:55 PM EDT documented as of this encounter Plan of Treatment Not on file documented as of this encounter Visit Diagnoses Not on filedocumented in this encounter Care Teams Hydroelectric Station Operator Chief Relationship Specialty Start Date End Date Renay Lucas MD PCP - General Family Medicine 06/15/16 documented as of this encounter
== END 2024-11-27 12:05 | disposition home or self-care (01) ==
LOC: HO.HMCHD 11:08
PROVIDERS: PCP Internal Medicine; Visit Provider Physician Assistant
DX: Z00.00 Encounter for general adult medical examination without abnormal findings (principal); F10.90 Alcohol use, unspecified, uncomplicated; G47.00 Insomnia, unspecified; R63.0 Anorexia; F17.210 Nicotine dependence, cigarettes, uncomplicated; F11.91 Opioid use, unspecified, in remission

== ENCOUNTER 2025-01-03 10:12 | Outpatient (AMB) | payer MEDICARE, MEDICAID, SELFPAY ==
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
[2025-01-03 10:14] VITALS: BP 134/80; PULSE 76; RESP 16; TEMP 36.6; O2SAT 98; BMI 23.2
--- OUTSIDE RECORDS SUMMARY | 2025-01-03 11:36 | XMS_ITS | Clinical Summary ---
Author Organization [employer] Address [address] [facility] [address] [place] [address] Care Team Providers Care International Logistics Analyst Name Role Phone Renay Lucas MD Primary [...] Most Recently Relevant to Health Maintenance Insurance [facility] STANDARD MEDICARE Care Teams International Logistics Analyst Relationship Specialty Start Date End Date Renay Lucas MD PCP - General Family Medicine 06/15/16
--- OUTSIDE RECORDS SUMMARY | 2025-01-03 11:36 | XMS_ITS | Encounter Summary ---
Author Organization [employer] Address [address] [facility] [address] [place] [address] Care Team Providers Care Truckman Name Role Phone Renay Lucas MD Primary Care Provider Unavailab le Reason for Visit * Reason Comments Med Refill Encounter Details Date Type Department Care Team (Late st Contact Info) Description 05/23/2022 Refill [facility] ADULT DENTAL [address] [place] [address] Eladio Zamarripa DMD [address] [place] [address] Dental abscess Social History Tobacco Use Types [...] sinus documented in this encounter Care Teams Truckman Relationship Specialty Start Date End Date Renay Lucas MD PCP - General Family Medicine 06/15/16 documented as of this encounter
--- OUTSIDE RECORDS SUMMARY | 2025-01-03 11:36 | XMS_ITS | Encounter Summary ---
Author Organization [employer] Address [address] [place] [address] Care Team Providers Care Animal Physiologist Name Role Phone Renay Lucas MD Primary Care Provider Unavailab le Reason for Visit * Reason Onset Date Comments tooth piece still in gum 12/09/2022 Encounter Details Date Type Department Care Team (Late st Contact Info) Description 12/09/2022 Telephone [facility] ADULT DENTAL [address] [place] [address] Eladio Zamarripa, DMD [address] [place] [address] tooth piece still in gum Social History [...] that is still in gum. Called front office manager. Given ext [phone] to reach you. Voicemail came on. What should patient do? DR documented in this encounter Plan of Treatment Not on file documented as of this encounter Visit Diagnoses Not on filedocumented in this encounter Care Teams Animal Physiologist Relationship Specialty Start Date End Date Renay Lucas MD PCP - General Family Medicine 06/15/16 documented as of this encounter
--- OUTSIDE RECORDS SUMMARY | 2025-01-03 11:36 | XMS_ITS | Encounter Summary ---
Author Organization [employer] Address [address] [facility] [address] [place] [address] Care Team Providers Care Ms Sql Server Developer Name Role Phone Renay Lucas MD Primary Care Provider Unavailab le Encounter Details Date Type Department Care Team (Late st Contact Info) Description 06/28/2022 Abstract [facility] ADULT DENTAL [address] [place] [address] Ruth Capo, DMD [address] [place] [address] Social History Tobacco Use Types Packs/Day Years [...] on filedocumented in this encounter Care Teams Ms Sql Server Developer Relationship Specialty Start Date End Date Renay Lucas MD PCP - General Family Medicine 06/15/16 documented as of this encounter
== END 2025-01-03 10:39 | disposition home or self-care (01) ==
LOC: HO.HMCHD 10:12
PROVIDERS: PCP Student in an Organized Health Care Education/Training Program; Visit Provider Student in an Organized Health Care Education/Training Program
DX: G47.09 Other insomnia (principal); F11.91 Opioid use, unspecified, in remission

== ENCOUNTER → 2025-01-03 10:12 | Outpatient (BNVA) | payer MEDICARE, MEDICAID, SELFPAY | PROVIDERS: PCP Student in an Organized Health Care Education/Training Program; Visit Provider Student in an Organized Health Care Education/Training Program | DX: G47.09 Other insomnia (principal); F11.20 Opioid dependence, uncomplicated; Z79.899 Other long term (current) drug therapy | CPT/HCPCS: 99212 ==